=== PATIENT | female | born 1970 | race Caucasian/White ===

== ENCOUNTER 2018-01-18 05:38 | Day surgery (SDC) | payer BC ==
[~2018-01-18] VITALS: Ht 175.3 cm; Wt 84.0 kg
[~2018-01-18 05:38] MED LIST: ADVIL,NUPRIN,M200 MG PO; DESYREL100 MG PO; MIRENA1 EACH IY; NEXIUM20 MG PO; PRISTIQ100 MG PO; TOPAMAX100 MG PO; VALIUM10 MG PO; ZOLOFT100 MG PO
[2018-01-18 05:54] VITALS: BP 103/65
[2018-01-18 09:20] VITALS: BP 123/74
[2018-01-18 09:50] VITALS: BP 118/72
== END 2018-01-18 10:11 | disposition home or self-care (01) ==
LOC: SDC 05:38
PROC: 0UBMXZX Excision of Vulva, External Approach, Diagnostic (ICD-10-PCS; principal; 2018-01-18)
PROC: 0U5MXZZ Destruction of Vulva, External Approach (ICD-10-PCS; principal; 2018-01-18)
PROC: 8E0UXY7 Examination of Female Reproductive System (ICD-10-PCS; principal; 2018-01-18)
DX: D07.1 Carcinoma in situ of vulva (principal)
CPT/HCPCS: 88305; 88307; J0131; J0330; J0690; J1100; J1170; J2250; J2405; J2710; J3010; J7643